=== PATIENT | male | born 1975 | race Caucasian/White ===

== ENCOUNTER 2022-04-12 07:40 | Day surgery (SDC) | payer SELFPAY, OTHER ==
--- NOTE | 2022-04-12 08:00 | EKG12_ITS ---
Test Reason : PRE OP Blood Pressure : / mmHG Vent. Rate : 067 BPM Atrial Rate : 067 BPM P-R Int : 134 ms QRS Dur : 084 ms QT Int : 398 ms P-R-T Axes : 017 018 010 degrees QTc Int : 420 ms Normal sinus rhythm Normal ECG Confirmed by LINDA FORBES, LAUREN ([id number]), purchase request editor CRUZ THOMPSON ([id number]) on 04/16/2022 1:30:33 PM Referred By: Arturo Santillan Confirmed By:LAUREN MCKEON MD
[2022-04-12 08:18] VITALS: BP 117/75; PULSE 74; RESP 16; TEMP 36.3; O2SAT 99; BMI 36.8
[2022-04-12] MEDS: Lactated Ringers 1,000 ML 15 ML IV (08:25)
[2022-04-12] MEDS: Cefazolin 2 GM in 0.9% Normal Saline 100 ML IV (09:15)
--- NOTE | 2022-04-12 09:15 | RAD_ITS ---
STUDY: X-RAY - LEFT HAND REASON FOR EXAM: Male, 47 years old. FB TECHNIQUE: view(s) of the hand. COMPARISON: None. FINDINGS: Normal radiocarpal articulation. Normal distal radioulnar joint. Normal visualized carpal bones. Normal carpal articulations Normal carpometacarpal articulation of the thumb. Normal second through fifth carpometacarpal joints. Normal metacarpi. Normal metacarpophalangeal joint of the thumb. Normal interphalangeal joint of the thumb. Normal proximal and distal phalanges of the thumb. Normal metacarpophalangeal joints of the second through fifth fingers. Normal proximal and distal interphalangeal joints of the second through fifth fingers. Normal phalanges of the second through fifth fingers. The soft tissue structures are unremarkable. No evidence of fracture or opaque foreign body. RAD/Hand 2 Views IMPRESSION: No evidence of fracture or opaque foreign body. Electronically Signed: Jeff Laughlin MD at 2:30 EDT ,
[2022-04-12] MEDS: Lidocaine 1% /Epi 1:100 (20ml) 20 ML Vial (09:33)
--- NOTE | 2022-04-12 09:53 | PCM.DC ---
Discharge Instructions Follow Up Care Test Results: Test results from this visit will be discussed in further detail at your follow-up appointment, if applicable. Discharge Plan Admission Primary Reason for Your Visit: Left hand foreign body removal Attending Provider: Arturo Santillan Primary Care Provider: Santino Buck Instructions Additional Instructions / Restrictions: Follow preprinted instructions from Dr. Santillan's office Discharge Orders/Prescriptions Prescriptions: New sulfamethoxazole-trimethoprim [Bactrim DS] 800-160 mg tablet 1 tab PO BID 7 Days Qty: 14 RF: 0 Referrals / Follow Up: Santino Buck MD [Primary Care Provider] - Arturo Santillan DO [STAFF PHYSICIAN] - Disposition Disposition (needs filled in before D/C Order can be placed): Home, Self Care
[2022-04-12 10:01] VITALS: BP 111/87; BP 117/75; PULSE 85; RESP 16; TEMP 37; O2SAT 95
--- NOTE | 2022-04-12 10:05 | PCM.OPRPT ---
Report of Operation Date of Procedure: 04/12/22 Description of Surgical Findings:: Preoperative diagnosis: Left hand retained foreign body with abscess Postoperative diagnosis: Left hand retained foreign body with abscess Procedure: 1. Removal foreign body left hand 2. Incision and drainage left hand abscess Primary Surgeon: Arturo Santillan DO Anesthesiologist: Dr. Victor Anesthesia: MAC with local Complications: None apparent Specimen: None Implants: None IV fluids: Per anesthesia record Estimated blood loss: 5 cc Intraoperative findings: Retained 25 mm wood splinter, purulent fluid noted the subcutaneous tissue Packing/drains: None Urine output: None recorded Preoperative indications: This is a 47-year-old male seen in the outpatient setting for left hand drainage and infection. X-rays revealed a foreign body due to a woodworking injury approximately 2 months ago. Patient was treated for infection by his PCP once with temporary resolution of infection. With infection returning approximately 1 week ago, I recommended surgical intervention in the form of incision and drainage of the left hand with removal foreign body. The risk, benefits, terms of procedure reviewed with patient at length and he agreed to proceed. Risks included but are not limited to bleeding, infection, loss of life limb, need for additional surgery, neurovascular injury, persistent infection, stiffness, DVT or PE. Patient expressed understanding of these risks and wished to proceed with surgery. Description of procedure: Patient was identified in the preoperative holding area by name, medical record number, and date of . The operative extremity was marked. All questions were answered to patient satisfaction. At time of his procedure, patient was brought the op suite positioned supine a standard operating table. All bony prominences well-padded. MAC anesthesia was induced. I then anesthetized with a tumescent field block with 10 cc 1% lidocaine with epinephrine 1: 100,000. We then prepped and draped the left hand in a normal, sterile orthopedic fashion. We performed a timeout with all parties in attendance in agreement with the side, site, operation be performed. No concerns voiced and elected proceed with surgery. 2 g Ancef was administered prior to the procedure by anesthesia staff. I first confirmed anesthesia of the planned incision on the ulnar aspect at the junction of the glabrous and nonglabrous skin of the palm. I exsanguinated the left hand with an Esmarch bandage. Esmarch was then secured proximally and peeled back from the hand to act as a tourniquet. This was in place for approximately 5 minutes. I marked a longitudinal incision as above, approximately 3 cm in length. Previous wound was noted and was ellipticized at time of incision. Skin was sharply incised with 15 blade scalpel excising the central wound in elliptical manner. Subcutaneous fluid was noted to be a purulent and cultures were obtained. Subcutaneous tissues were spread with Littler scissors. Immediately, the splinter was propelled into the [id number], herniating from the wound. Splinter was removed and placed in the back table. I bluntly dissected in the palmar fat for any additional foreign bodies or purulent loculations. The remainder of the dissection appeared benign. Fluoroscopy was brought in to ensure no remaining radiopaque foreign bodies. This was confirmed on orthogonal fluoroscopy. C arm was then removed. I thoroughly irrigated the wound normal saline solution. Tourniquet was deflated and hemostasis obtained with bipolar cautery. Skin was loosely reapproximated with simple 4-0 nylon suture. A bulky sterile compression dressing was applied. Anesthesia was then reversed. Patient was able to transferred to his gurney and subsequently to PACU in stable condition. Postoperative plan: Okay to remove dressing on postoperative day #2. [place] prescription provided as an outpatient. Elevation to the hand. Range of motion as tolerated. No heavy lifting until follow-up with me in approximately 1 week. Okay to shower on postoperative day #2. Apply dry sterile dressing after hygiene if drainage is noted.
[2022-04-12 10:06] VITALS: BP 117/75; BP 137/85; PULSE 79; RESP 16; O2SAT 99
[2022-04-12 10:11] VITALS: BP 117/75; BP 132/87; PULSE 78; RESP 16; O2SAT 100
[2022-04-12 10:16] VITALS: BP 117/75; BP 141/90; PULSE 79; RESP 16; TEMP 36.5; O2SAT 99
[2022-04-12 10:53] VITALS: BP 116/72; BP 117/75; PULSE 66; RESP 16; TEMP 36.3; O2SAT 97
== END 2022-04-12 11:06 | disposition home or self-care (01) ==
LOC: SDC 07:49 → AC 07:49
PROVIDERS: PCP Orthopaedic Surgery; Referring Provider Student in an Organized Health Care Education/Training Program; Visit Provider Student in an Organized Health Care Education/Training Program
PROC: (CPT 64721; principal; 2022-04-12 09:35)
DX: L02.512 Cutaneous abscess of left hand (principal); S60.552A Superficial foreign body of left hand, initial encounter; E66.9 Obesity, unspecified; Z68.36 Body mass index [BMI] 36.0-36.9, adult; W45.8XXA Other foreign body or object entering through skin, initial encounter
CPT/HCPCS: 10120; 10060; 00400; 73120; 76000; 87070; 87075; 87186; 87205; 93005; J7120; J2405